=== PATIENT | female | born 2000 | race American Indian/Alaskan Native ===

== ENCOUNTER 2018-09-20 11:09 | Outpatient (CLI) | payer OTHER ==
[2018-09-20 11:18] VITALS: BP 114/67
[2018-09-20] MEDS ORDERED: LACTATED RINGERS 1,000 ML IV ONE (11:18)
[2018-09-20 12:02] LABS: Mucus,Urine FEW /HPF
[2018-09-20 12:03] LABS: Bilirubin,Urine NEG (Negative); Blood,Urine NEG (Negative); Color,Urine Yellow (Yellow); Protein,Urine <15 mg/dL mg/dL (Negative); Urobilinogen,Urine < 2.0 mg/dL (<2.0)
[2018-09-20 12:05] LABS: Basophils % (Auto) 0.6 % (0.0-1.8); Eosinophils # (Auto) 0.2 K/mm3 (0.0-0.4); Eosinophils % (Auto) 3.3 % (0.0-4.3); Hemoglobin 11.3 gm/dl (10.1-14.3); Lymphocytes # (Auto) 1.6 K/mm3 (1.2-5.4); Lymphocytes % (Auto) 22.6 % (13.4-35.0); Mean Corpuscular HGB Conc 33 % (30-34); Mean Corpuscular Volume 85 fl (79-97); Monocytes # (Auto) 0.6 K/mm3 (0.0-0.8); Monocytes % (Auto) 8.4 % (0.0-7.3); Platelet Count 105 K/mm3 (140-440); Red Blood Count 3.98 M/mm3 (3.65-5.03); Red Cell Distribution Width 15.3 % (13.2-15.2)
[2018-09-20 12:39] LABS: Amphetamine Screen,Urine PRESUMPTIVE NEGATIVE; Benzodiazepines Screen,Urine PRESUMPTIVE NEGATIVE; Cannabinoid Screen,Urine PRESUMPTIVE NEGATIVE; Cocaine Screen,Urine PRESUMPTIVE NEGATIVE; Methadone Screen,Urine PRESUMPTIVE NEGATIVE; Opiate Screen,Urine PRESUMPTIVE NEGATIVE
[2018-09-20 12:49] LABS: Hepatitis C Virus Antibody Non-Reactive (NonReactive)
--- NOTE | 2018-09-20 15:42 | Ultrasound Report ---
US OB limited INDICATION: CONFIRM PREVIA COMPARISON: None available. FINDINGS: The placenta appears anterior and grade 2, well clear of the cervix. There is no evidence of placenta l abruption or previa. heart rate is 143 bpm. position is cephalic. Signer Name: Sami Sandoval MD Signed: 09/20/2018 3:38 PM Workstation Name: [id number]
== END 2018-09-20 13:50 | disposition home or self-care (01) ==
LOC: TRG 11:09
PROVIDERS: ATTEND Obstetrics & Gynecology
DX: O62.9 Abnormality of forces of labor, unspecified (principal); O26.893 Other specified pregnancy related conditions, third trimester; R10.30 Lower abdominal pain, unspecified; Z3A.38 38 weeks gestation of pregnancy
CPT/HCPCS: 36415; 59025; 76815; 80307; 81001; 85025; 86592; 86706; 86762; 86803; 86850; 86900; 86901; 87806; 96360; J7120

== ENCOUNTER 2019-12-17 11:27 | Emergency (ER) | payer OTHER | END 2019-12-17 12:07 | disposition left against medical advice (07) | LOC: ED 11:27 | DX: R10.9 Unspecified abdominal pain (principal); Z53.21 Procedure and treatment not carried out due to patient leaving prior to being seen by health care provider ==

== ENCOUNTER 2020-03-27 22:47 | Emergency (ER) | payer MEDICAID, OTHER ==
[2020-03-27 23:53] VITALS: BP 116/70
--- NOTE | 2020-03-28 00:20 | Event Note ---
ED Screening Note Date of service: 03/28/20 Time: 00:19 ED Screening Note: This is a 20-year-old female with no prior medical history presents to ED with intermittent vaginal spotting x4 days with lower pelvic pain. Patient also complaining of worsening migraine headache. Patient states she had a menstrual cycle at the beginning of the month. P Patient states that she has had a migraine headache before. This initial assessment/diagnostic orders/clinical plan/treatment(s) is/are subject to change based on patients health status, clinical progression and re- assessment by fellow clinical providers in the ED. Further treatment and workup at subsequent clinical providers discretion. Patient/guardian urged not to elope from the ED as their condition may be serious if not clinically assessed and managed. Initial orders include: CBC, CMP, urinalysis, test.
[2020-03-28 01:19] LABS: Alanine Aminotransferase 17 units/L (7-56); Albumin 4.3 g/dL (3.9-5); Blood Urea Nitrogen 13 mg/dL (7-17); Calcium 9.2 mg/dL (8.4-10.2); Hemolysis Index 20
[2020-03-28 01:21] LABS: BUN/Creatinine Ratio 19
[2020-03-28 01:38] LABS: Basophils % (Auto) 0.4 % (0.0-1.8); Eosinophils # (Auto) 0.2 K/mm3 (0.0-0.4); Eosinophils % (Auto) 4.1 % (0.0-4.3); Hematocrit 40.4 % (30.3-42.9); Hemoglobin 13.5 gm/dl (10.1-14.3); Lymphocytes # (Auto) 2.4 K/mm3 (1.2-5.4); Lymphocytes % (Auto) 42.3 % (13.4-35.0); Mean Corpuscular HGB Conc 33 % (30-34); Mean Corpuscular Volume 90 fl (79-97); Monocytes # (Auto) 0.5 K/mm3 (0.0-0.8); Monocytes % (Auto) 8.3 % (0.0-7.3); Red Blood Count 4.51 M/mm3 (3.65-5.03); Red Cell Distribution Width 13.3 % (13.2-15.2)
[2020-03-28 01:46] LABS: Platelet Count 81 K/mm3 (140-440)
[2020-03-28] MEDS ORDERED: oxyCODONE /ACETAMINOPHEN 5-325MG TAB PO ONE (03:56)
[2020-03-28 04:07] LABS: Bacteria,Urine 1+ /HPF (Negative); Bilirubin,Urine NEG (Negative); Blood,Urine NEG (Negative); Color,Urine Yellow (Yellow); Mucus,Urine 2+ /HPF; Protein,Urine <15 mg/dL mg/dL (Negative); Urobilinogen,Urine < 2.0 mg/dL (<2.0)
[2020-03-28] MEDS ORDERED: SODIUM CHLORIDE 0.9% 1000 ML 1,000 ML IV ONE (04:07)
[2020-03-28] MEDS ORDERED: diphenhydrAMINE 50 MG/ML VIAL IV STA (04:07)
[2020-03-28] MEDS ORDERED: METOCLOPRAMIDE 10 MG/2 ML INJ IV STA (04:07)
[2020-03-28] MEDS ORDERED: KETOROLAC 30 MG/1 ML INJ IV STA (04:07)
--- NOTE | 2020-03-28 05:26 | Emergency Department Report ---
ED Headache HPI - General Chief Complaint: Headache Stated Complaint: HEADACHE/CRAMPING/ABDOMINAL PAIN Time Seen by Provider: 03/28/20 04:19 - History of Present Illness Initial Comments: 20-year-old -[place] female is emerged department complaining of a few day history of migraine headaches not responding to [id number] medications symptoms are associated with photophobia but reports no scotomas reports no presyncope reports no hemoptysis no hematemesis no neck pain no fevers, chills, sweats she does however report having some increased urinary urgency and some burning sensation. No vaginal discharge Timing/Duration: 1 week Quality: moderate, severe Head Injury Location: temporal, parietal Recent Head Trauma: occasional headaches Associated Symptoms: other. denies: facial pain, fever/chills (Photophobia), nausea/vomiting, nasal drainage, stiff neck, vision changes Allergies/Adverse Reactions: Allergies amoxicillin Allergy (Verified 09/20/18 11:14) Rash Home Medications: Ambulatory Orders Vit-Fe Fumar-FA [ Vitamin] 1 tab PO QDAY 09/20/18 Butalb/Acetaminophen/Caffeine [Fioricet 50-300-40 mg CAP] 1 cap PO Q8HR PRN #20 cap 03/28/20 Phenazopyridine [Pyridium] 200 mg PO TID #9 tab 03/28/20 Sulfamethoxazole/Trimethoprim [Bactrim DS TAB] 1 each PO BID #14 tablet 03/28/20 ED Review of Systems ROS: Stated complaint: HEADACHE/CRAMPING/ABDOMINAL PAIN Other details as noted in HPI Comment: All other systems reviewed and negative ED Past Medical Hx - Past Medical History Previous Medical History?: No Hx Hypertension: No Hx Diabetes: No Hx Deep Vein Thrombosis: No Hx Renal Disease: No Hx Sickle Cell Disease: No Hx Seizures: No Hx Asthma: No Hx HIV: No - Surgical History Past Surgical History?: Yes Additional Surgical History: x2 - Social History Smoking Status: Never Smoker - Medications Home Medications: Home Medications Medication Instructions Recorded Confirmed Last Taken Type Vit-Fe Fumar-FA [ 1 tab PO QDAY 09/20/18 09/20/18 Unknown History Vitamin] Butalb/Acetaminophen/Caffeine 1 cap PO Q8HR PRN #20 cap 03/28/20 Unknown Rx [Fioricet 50-300-40 mg CAP] Phenazopyridine [Pyridium] 200 mg PO TID #9 tab 03/28/20 Unknown Rx Sulfamethoxazole/Trimethoprim 1 each PO BID #14 tablet 03/28/20 Unknown Rx [Bactrim DS TAB] ED Physical Exam - General Limitations: No Limitations General appearance: alert, in no apparent distress - Head Head exam: Present: atraumatic, normocephalic - Eye Eye exam: Present: normal appearance, PERRL, EOMI, nystagmus, other (Negative funduscopic examination) Pupils: Present: normal accommodation - ENT ENT exam: Present: normal exam, normal orophraynx, mucous membranes moist, TM's normal bilaterally - Neck Neck exam: Present: normal inspection, full ROM - Respiratory Respiratory exam: Present: normal lung sounds bilaterally. Absent: respiratory distress, wheezes, rhonchi, chest wall tenderness - Cardiovascular Cardiovascular Exam: Present: regular rate, normal rhythm. Absent: systolic murmur, diastolic murmur, rubs, gallop - GI/Abdominal GI/Abdominal exam: Present: soft, normal bowel sounds. Absent: tenderness, guarding - Extremities Exam Extremities exam: Present: normal inspection - Back Exam Back exam: Present: normal inspection - Neurological Exam Neurological exam: Present: alert, oriented X3 - Psychiatric Psychiatric exam: Present: normal affect, normal mood - Skin Skin exam: Present: warm, dry, intact, normal color. Absent: rash ED Course Vital Signs 03/27/20 23:50 Temperature 97.8 F Pulse Rate 72 Respiratory 16 Rate Blood Pressure 116/70 O2 Sat by Pulse 100 Oximetry ED Medical Decision Making - Lab Data Result diagrams: 03/28/20 00:12 03/28/20 00:12 - Medical Decision Making This patient presents with a headache most consistent with migraine. Differential diagnosis includes migraine versus tension type headache. No headache red flags. Neurologic exam without evidence of meningismus, focal neurologic findings.Based on the patient's history and physical there is very low clinical suspicion for significant intracranial pathology. The headache was NOT sudden onset, NOT maximal at onset, there are NO neurologic findings, the patient does NOT have a fever, the patient does NOT have any jaw claudication, the patient does NOT endorse a clotting disorder, patient DENIES any trauma or eye pain and the headache is NOT associated with dizziness or ataxia. Presentation not consistent with acute intracranial bleed to include SAH (lack of risk factors, headache history). Presentation not consistent with acute [employer] infection to include meningitis or brain abscess, Temporal arteritis unlikely, as is acute angle closure glaucoma given history and physical findings. Presentation not consistent with other acute, emergent causes of headache at this time. Plan to treat symptomatically with pain medication. No indication for imaging/LP at this time. Plan: pain medicatio jian she responded to the cocktail well pain resolved will be discharged home with [facility] Critical care attestation.: If time is entered above; I have spent that time in minutes in the direct care of this critically ill patient, excluding procedure time. ED Disposition Clinical Impression: Cephalgia, UTI (urinary tract infection) Disposition: TO HOME OR SELFCARE Is pt being admited?: No Does the pt Need Aspirin: No Condition: Stable Instructions: Urinary Tract Infection, Adult, [id number], General Headache Without Cause, Migraine Headache, [id number], Tension Headache, Adult, [id number] Prescriptions: Sulfamethoxazole/Trimethoprim [Bactrim DS TAB] 1 each PO BID #14 tablet Butalb/Acetaminophen/Caffeine [Fioricet 50-300-40 mg CAP] 1 cap PO Q8HR PRN #20 cap PRN Reason: headache Phenazopyridine [Pyridium] 200 mg PO TID #9 tab Referrals: PRIMARY CAREMD [Primary Care Provider] - 3-5 Days [facility] [Provider Group] - 3-5 Days GEOFF ARIZMENDI MD [Staff Physician] - 3-5 Days
== END 2020-03-28 05:50 | disposition home or self-care (01) ==
LOC: ED 22:47
DX: R51.9 Headache, unspecified (principal); N39.0 Urinary tract infection, site not specified; Z79.899 Other long term (current) drug therapy; Z88.8 Allergy status to other drugs, medicaments and biological substances
CPT/HCPCS: 36415; 80053; 81001; 84702; 85025; 87086; 96361; 96374; 96375; 99283; J1200; J1885; J2765; J7030